=== PATIENT | female | born 1950 | race Caucasian/White ===

== ENCOUNTER → 2017-02-03 | Day surgery (SDC) | payer MEDICARE, BC ==
[~2017-02-03] MED LIST: BETH5TAB2 PO; CELE40TA PO; CETI1TAB53 PO; CINN500C13 PO; CYAN1SUB SL; DULE200A INH; FURO1TAB60 PO; IBUP-232 PO; IOHEXOL 180 MG/ML 20 ML VIAL (for RAD DIAG) EPIDURAL ONE; LIDOCAINE HCL 2% PF 5 ML VIAL NERV BLOCK ONE; MONT10TA2 PO; POTA10CA PO; PREV30CA11 PO; PROPOFOL 200 MG/20 ML AMP IV ONE; SYNT88TA PO; TRIAMCINOLONE ACETONIDE 40 MG/ML VIAL NERV BLOCK ONE; VITA2000 PO
--- NOTE | 2017-02-06 06:24 | M6 ---
cc: MAXINE DAVENPORT MD, CHRISTOPHER M.D. MAYFIELD, WILLIAM R. M.D. DATE 02/03/2017 DATE OF 1950 PROCEDURE Fluoroscopically guided right L4 and right L5 selective nerve root block. PREPROCEDURE NOTE On 01/20/2017 we performed fluoroscopically guided injection of Ms. Abreu's bilateral lumbar facet joints. She comes today to state that her back pain has completely resolved and she still is having some numbness, tingling and moderate pain extending down her right leg into her foot. She does state that the right leg pain is somewhat better than it was prior to the lumbar facet joint injections, so today we are performing a right L4 and right L5 selective nerve root block. We will evaluate the patient immediately and with followup. History and physical was completed and signed. Consent was signed. Procedure site was marked. Medications were listed and reconciled. Pain score was recorded. Allergies were noted. Time out was taken. Fluoroscopy time was recorded where applicable. Sedation was administered or directed by Dr. Dodson. The patient was given oxygen. The patient was monitored by a registered nurse. Total procedure time was greater than 15 minutes. PROCEDURE NOTE IV was started. Blood pressure cuff, pulse oximeter and EKG were applied. The patient was placed in the prone position on a [place] table, sedated with small amounts of propofol titrated to effect. Vital signs were monitored and remained stable throughout the procedure. The lumbar area was prepped with alcohol and 10% Betadine solution and draped with sterile drapes. Fluoroscopy was used in both the AP and lateral projection to clearly visualize the right L4-5 and right L5-S1 neural foramen. Then separate sterile 3-1/2-inch, 22-gauge Chiba needles were advanced into the dorsal aspect of each foramen. There was negative aspiration for blood or any other type of fluid. Omnipaque dye was injected and outlined each nerve root and there was no washout of the dye. At this point the patient was given 1.5 mL of 2% lidocaine, 1 mL of Omnipaque and 40 mg of Kenalog on each nerve. Following this the patient was taken to the recovery room with stable vital signs, neurologically intact. She will be evaluated immediately today and with followup regarding her right lower extremity symptoms. W. MD JOSÉ MANUEL Andrade/ELMIRA /8:29 AM /6:17 AM
== END | disposition home or self-care (01) ==
LOC: PHSDC 06:53
PROVIDERS: ATTEND Pain Medicine Interventional Pain Medicine
DX: M79.661 Pain in right lower leg (principal)
CPT/HCPCS: 64483; 64484; 99152; J3301; Q9965